=== PATIENT | female | born 1980 | race Two or more races ===

== ENCOUNTER 2017-01-27 17:27 | Emergency (ER) | payer OTHER ==
[~2017-01-27] VITALS: Ht 149.9 cm; Wt 65.8 kg
[2017-01-27 18:01] VITALS: BP 125/77
[2017-01-27 18:55] LABS: APPEARANCE,URINE CLEAR; KETONES,URINE NEGATIVE (NEGATIVE); LEUKOCYTE ESTERASE ,URINE 3+ (NEGATIVE); NITRITE,URINE NEGATIVE (NEGATIVE); PH,URINE 5 (4.5-8.0); PROTEIN,URINE NEGATIVE (NEGATIVE); UROBILINOGEN,URINE NORMAL MG/DL (0.0-1.0)
--- NOTE | 2017-01-27 18:55 | Emergency Room Report ---
History of Present Illness General Chief Complaint: Pain Source: Patient Present Illness HPI 36-year-old female presents to emergency Department complaining of 8/10 in severity low back pain primarily on the right side in addition to lower abdominal fullness and intermittent pain. Patient does report frequency denies dysuria patient states pain comes and goes and is exacerbated to 10/10 in severity in the back upon certain movements of the back. She does report lifting heavy objects recently and believes that may have been the onset of her pain however she states lower abdominal discomfort as if she is a full bladder. Denies fevers chills nausea, vomiting, tenderness to the abdomen, hematuria, or blood in the stool. Pt. denies fall or trauma. Denies . Denies numbness tingling or loss of sensation or gross motor movements of the extremities, incontinence of bowel or bladder. Denies CP, Palpitations, LOC, AMS , dizziness, Changes in Vision, Sensation, paresthesias, or a sudden severe headache. Allergies: Coded Allergies: No Known Allergies (Unverified , 01/27/17) Patient History Past Medical History: see triage record Past Surgical History: none Pertinent Family History: none Last Menstrual Period: 01/05/17 Now: No Immunizations: UTD Reviewed Nursing Documentation: PMH: Agreed, PSxH: Agreed Nursing Documentation-PMH Past Medical History: No Stated History Review of Systems All Other Systems: negative except mentioned in HPI Physical Exam Vital Signs Date Time Temp Pulse Resp B/P Pulse Ox O2 Delivery O2 Flow Rate FiO2 01/27/17 17:50 98.4 81 16 125/77 98 Room Air Sp02 EP Interpretation: reviewed, normal General Appearance: no apparent distress, alert, GCS 15, non-toxic Head: normocephalic, atraumatic Eyes: bilateral eye PERRL, bilateral eye normal inspection ENT: hearing grossly normal, normal pharynx, no angioedema, normal voice Neck: full range of motion, supple/symm/no masses Respiratory: chest non-tender, lungs clear, normal breath sounds, no wheezing, speaking full sentences Cardiovascular #1: regular rate, rhythm, no edema Gastrointestinal: normal bowel sounds, non tender, soft, no guarding, no rebound, other - no TTP, no peritoneal signs. negative murphys Rectal: deferred Genitourinary: normal inspection, no CVA tenderness Musculoskeletal: back normal, gait/station normal, normal range of motion, no calf tenderness, tender - right lateral lumbar paraspinal ttp, no midline TTP pt. has FROM , no CVA tenderness. Neurologic: alert, oriented x3, responsive, motor strength/tone normal, sensory intact, speech normal Psychiatric: judgement/insight normal, memory normal, mood/affect normal, no suicidal/homicidal ideation Skin: normal color, no rash, warm/dry, well hydrated Medical Decision Making PA Attestation Dr. Valero is my supervising Physician whom patient management has been discussed with. Diagnostic Impression: Primary Impression: Muscle strain Additional Impression: UTI (urinary tract infection) Qualified Codes: N30.00 - Acute cystitis without hematuria ER Course 36-year-old female presents to emergency Department complaining of 8/10 in severity low back pain primarily on the right side in addition to lower abdominal fullness and intermittent pain. Patient does report frequency denies dysuria patient states pain comes and goes and is exacerbated to 10/10 in severity in the back upon certain movements of the back. She does report lifting heavy objects recently and believes that may have been the onset of her pain however she states lower abdominal discomfort as if she is a full bladder. Denies fevers chills nausea, vomiting, tenderness to the abdomen, hematuria, or blood in the stool. Denies . Ddx considered but are not limited to Diverticulitis, acute appy, diarrhea,UC, PUD, GE, pancreatitis, gallstone, kidney stone, pyelonephritis, UTI, obstruction. Vital signs: are WNL, pt. is afebrile H&PE are most consistent with muscle injury and possible UTI, will also consider stone, no abdominal ttp, no CVA tenderness. ORDERS: - UA: WBC"S leukocytes, and few bacteria, no blood more indicative of infection. -Urine Hcg: Negative ED INTERVENTIONS: 7.5 mg Halliday PO -Im Toradol DISCHARGE: At this time pt. is stable for d/c to home. Will provide printed patient care instructions, and any necessary prescriptions. Care plan and follow up instructions have been discussed with the patient prior to discharge. Labs Test 01/27/17 18:30 Urine Color Pale yellow Urine Appearance Clear Urine pH 5 (4.5-8.0) Urine Specific [place] 1.010 (1.005-1.035) Urine Protein Negative (NEGATIVE) Urine Glucose (UA) Negative (NEGATIVE) Urine Ketones Negative (NEGATIVE) Urine Occult Blood Negative (NEGATIVE) Urine Nitrite Negative (NEGATIVE) Urine Bilirubin Negative (NEGATIVE) Urine Urobilinogen Normal MG/DL (0.0-1.0) Urine Leukocyte Esterase 3+ (NEGATIVE) Urine RBC 2-4 /HPF (0 - 2) Urine WBC 5-10 /HPF (0 - 2) Urine Squamous Epithelial Cells Few /LPF (NONE/OCC) Urine Amorphous Sediment Few /LPF (NONE) Urine Bacteria Few /HPF (NONE) Last Vital Signs Date Time Temp Pulse Resp B/P Pulse Ox O2 Delivery O2 Flow Rate FiO2 01/27/17 18:01 16 125/77 98 Room Air 01/27/17 17:50 98.4 81 Disposition: HOME, SELF-CARE Condition: Stable Scripts Ibuprofen* (MOTRIN*) 600 Mg Tablet 600 MG ORAL THREE TIMES A DAY, #30 TAB 0 Refills Prov: Pebbles Brady 01/27/17 Cyclobenzaprine Hcl* (FLEXERIL*) 10 Mg Tablet 10 MG ORAL THREE TIMES A DAY for 7 Days, #21 TAB Prov: Pebbles Brady 01/27/17 Nitrofurantoin Monohyd/M-Cryst* (MACROBID 100 MG*) 100 Mg Capsule 100 MG ORAL EVERY 12 HOURS for 5 Days, #10 CAP Prov: Pebbles Brady 01/27/17 Referrals: [facility],REFERRING (PCP) Patient Instructions: Muscle Strain, [id number], Urinary Tract Infection, [id number] Additional Instructions: Take medications as directed. Follow up with PCP in 3-5 days Return sooner to ED if new symptoms occur, or current symptoms become worse. - Please note that this Emergency Department Report was dictated using [employer] controls engineer technology software, occasionally this can lead to erroneous entry secondary to interpretation by the dictation equipment. Pebbles Brady Jan 27, 2017 18:55
[2017-01-27 19:06] LABS: AMORPHOUS SEDIMENT,UR FEW /LPF; BACTERIA,URINE FEW /HPF; SQUAMOUS EPITHELIAL CELL,UR FEW /LPF (NONE/OCC)
[2017-01-27] MEDS ORDERED: Norco 7.5mg/325mg tab ORAL ONE (19:20)
[2017-01-27] MEDS ORDERED: CYCLOBENZAPRINE10 MG ORAL (19:23)
[2017-01-27] MEDS ORDERED: NITROFURANTOIN100 M2 ORAL (19:23)
[2017-01-27] MEDS ORDERED: IBUPROFEN600 MG ORAL (19:23)
[2017-01-27 19:26] VITALS: BP 119/71
[2017-01-27] MEDS ORDERED: Ketorolac 60mg Inj IM ONE (19:45)
== END 2017-01-27 19:29 | disposition home or self-care (01) ==
LOC: EMR 18:25
DX: S39.012A Strain of muscle, fascia and tendon of lower back, initial encounter (principal); X58.XXXA Exposure to other specified factors, initial encounter; Y92.9 Unspecified place or not applicable; N39.0 Urinary tract infection, site not specified
CPT/HCPCS: 81003; 81025; 96372; 99284